=== PATIENT | female | born 1995 | race Hispanic/Latino ===

== ENCOUNTER 2018-11-06 13:30 | Emergency (ER) | payer MEDICAID ==
[2018-11-06 14:13] VITALS: TEMP 99.5
--- NOTE | 2018-11-06 15:03 | C.PDOC ---
History Of Present Illness 23 y/o female presents to the ER complaining of intermittent palpitations and dizziness which has been present for the past few days. Patient describes the dizziness as the room spinning. Patient states that the symptoms wake her up at night. She notes that she wakes up and she has sweating with palpitations and vertigo. She is also complaining of cramping in left side neck and numbness down the left arm. She has history of anxiety and panic attacks. She recently moved from [place] where she was evaluated by a physician for similar complaints. At the time, she had multiple cardiac work ups which were negative.Denies having C P, SOB, and syncope. Time Seen by Provider: 11/06/18 13:58 Chief Complaint (Nursing): Palpitations History Per: Patient History/Exam Limitations: no limitations Onset/Duration Of Symptoms: Days Current Symptoms Are (Timing): Still Present Severity: Moderate Past Medical History Reviewed: Historical Data, Nursing Documentation, Vital Signs Vital Signs: Last Vital Signs Temp 99.5 F 11/06/18 13:57 Pulse 72 11/06/18 13:57 Resp 22 11/06/18 13:57 BP 122/78 11/06/18 13:57 Pulse Ox 99 11/06/18 13:57 - Medical History PMH: Anxiety Denies: Chronic Kidney Disease Surgical History: Tonsillectomy Family History: States: No Known Family Hx - Social History Hx Alcohol Use: Yes Hx Substance Use: No - Immunization History Hx Tetanus Toxoid Vaccination: No Hx Influenza Vaccination: No Hx Pneumococcal Vaccination: No Review Of Systems Constitutional: Negative for: Fever, Chills Cardiovascular: Positive for: Palpitations. Negative for: Chest Pain Respiratory: Negative for: Shortness of Breath Gastrointestinal: Negative for: Nausea, Vomiting Musculoskeletal: Positive for: Neck Pain Neurological: Positive for: Numbness (left arm), Dizziness Physical Exam - Physical Exam Appears: Non-toxic, No Acute Distress Skin: Normal Color, Warm, Dry Head: Atraumatic, Normacephalic Eye(s): bilateral: Normal Inspection Nose: Normal Oral Mucosa: Moist Neck: Normal ROM, No Midline Cervical Tenderness, Supple Chest: Symmetrical Cardiovascular: Rhythm Regular Respiratory: Normal Breath Sounds, No Rales, No Rhonchi, No Wheezing Extremity: Normal ROM, No Tenderness, No Swelling Neurological/Psych: Oriented x3, Normal Speech, Normal Motor, Normal Sensation ED Course And Treatment - Laboratory Results Result Diagrams: 11/06/18 15:01 11/06/18 15:01 ECG: Interpreted By Me, Viewed By Me ECG Rhythm: Sinus Rhythm Interpretation Of EC:07 - NSR with normal intervals, normal axises, no ST/T wave elevations, no T wave changes, no PVC's Rate From EC O2 Sat by Pulse Oximetry: 99 (RA) Pulse Ox Interpretation: Normal Medical Decision Making Medical Decision Making: Plan: --Labs --Meclizine PO --1L NS bolus Patient re-evaluated after meclizine PO and fluids, states that she feels better. Patient has been in sinus rhythm in the 70's-80's throughout ED course. Advised outpatient followup with PMD. Will write Rx for meclizine. Patient stable for discharge home at this time. Disposition - Disposition Referrals: [facility] [Provider Group] Disposition: HOME/ ROUTINE Disposition Time: 16:50 Condition: STABLE Additional Instructions: EDGAR BREWSTER, thank you for letting us take care of you today. Your pr ovider was Yanira Lowe MD and you were treated for LT ARM NUMBNESS /DIZZINESS. The emergency medical care you received today was directed at your acute symptoms. If you were prescribed any medication, please fill it and take as directed. It may take several days for your symptoms to resolve. Return to the Emergency Department if your symptoms worsen, do not improve, or if you have any other problems. Please contact your doctor or call one of the physicians/clinics you have been referred to that are listed on the Patient Visit Information form that is included in your discharge packet. Bring any paperwork you were given at discharge with you along with any medications you are taking to your follow up visit. Our treatment cannot replace ongoing medical care by a primary care provider outside of the emergency department. Thank you for allowing the [facility] team to be part of your care today. If you had an X-Ray or CT scan: A Radiologist will review the ED reading if any change in treatment is needed we will contact you. If you had a blood, urine, or wound culture: It will take several days for the results, if any change in treatment is needed we will contact you. If you had an STI test: It will take 48 hours for the results. Please call after 1 week if you have not heard back. Prescriptions: RX: Meclizine [Antivert] 12.5 mg PO BID #14 tab Instructions: Vertigo (a Type of Dizziness) (DC), Palpitations (DC) Forms: [facility] (Bulgarian), Work Excuse - Clinical Impression Clinical Impression: Palpitations, Vertigo - Scribe Statement The provider has reviewed the documentation as recorded by the Jb Miranda Provider Attestation: All medical record entries made by the Jb were at my direction and personally dictated by me. I have reviewed the chart and agree that the record accurately reflects my personal performance of the history, physical exam, medical decision making, and the department course for this patient. I have also personally directed, reviewed, and agree with the discharge instructions and disposition.
[2018-11-06 15:04] LABS: BASO % 0.2 % (0.0-2.0); EOS # 0.1 K/uL (0.0-0.7); EOS % 1.6 % (0.0-4.0); HEMOGLOBIN 13.8 g/dL (11.0-16.0); LYMPH # 2.9 K/uL (1.0-4.3); LYMPH % 38.2 % (20.0-40.0); MEAN CELL VOLUME 87.3 fL (81.0-99.0); MEAN CORPUSCULAR HEMOGLOBIN 29.7 pg (27.0-31.0); MEAN CORPUSCULAR HGB CONC 34.1 g/dL (33.0-37.0); MEAN PLATELET VOLUME 9.6 fL (7.2-11.7); MONO # 0.5 K/uL (0.0-0.8); MONO % 6.8 % (0.0-10.0); NEUT # 4.1 K/uL (1.8-7.0); NEUT % 53.2 % (50.0-75.0); NRBC % 0.1 % (0.0-2.0); RBC 4.63 Mil/uL (3.80-5.20); RED CELL DISTRIBUTION WIDTH 13.1 % (11.5-14.5); WHITE BLOOD COUNT 7.7 K/uL (4.8-10.8)
[2018-11-06 15:24] LABS: BLOOD UREA NITROGEN 13 mg/dL (7-17); CALCIUM 9.3 mg/dl (8.6-10.4); GFR NON-AFRICAN AMERICAN > 60
[2018-11-06 18:01] VITALS: BP 120/78; PULSE 77; RESP 20
[2018-11-07 23:59] VITALS: O2SAT 99
--- NOTE | 2018-11-09 13:11 | CARD ---
APPROVED REPORT Date of service: 11/06/2018 EKG Measurement Heart [id number] <Conclusion> Normal sinus rhythm with sinus arrhythmia Normal ECG
== END 2018-11-06 18:01 | disposition home or self-care (01) ==
LOC: C.ER 13:30
DX: R42 Dizziness and giddiness (principal); R00.2 Palpitations